=== PATIENT | female | born 1985 | race African-American/Black ===

== ENCOUNTER 2017-10-17 11:46 | Emergency (ER) | payer SELFPAY ==
[~2017-10-17] VITALS: Ht 172.7 cm; Wt 65.9 kg
[~2017-10-17 11:46] MED LIST: NO HOME MEDICATIONS
[2017-10-17 11:50] VITALS: TEMP 97.6
[2017-10-17 14:44] LABS: COLLECTION METHOD CLEAN CATCH
[2017-10-17 14:57] LABS: MUCOUS Present /lpf; PH 6 (5-8); SQUAMOUS EPITHELIAL 0-2 /hpf; URINE APPEARANCE Hazy; URINE BACTERIA None Seen /hpf; URINE BILIRUBIN Negative (NEGATIVE); URINE BLOOD 3+ (NEGATIVE); URINE COLOR Yellow; URINE GLUCOSE Negative (NEGATIVE); URINE KETONE Trace (NEGATIVE); URINE LEUKOCYTE ESTERASE Trace (NEGATIVE); URINE NITRATE Negative (NEGATIVE); URINE PROTEIN(semi-quant) Negative (NEGATIVE); URINE RBC 0-2 /hpf; URINE UROBILINOGEN Negative (NEGATIVE)
[2017-10-17 15:08] LABS: BASO % 0.6 % (0.0-2.0); EOS # 0.1 (0.0-0.7); EOS % 1.6 % (0-4.0); GRAN # 2.4 (1.4-6.5); GRAN % 47.5 % (42.2-75.2); HEMATOCRIT 43.6 % (37.0-47.0); HEMOGLOBIN 15.4 g/dl (12.5-16.0); LYMPH % 40.1 % (20.0-51.0); MEAN CELL VOLUME 99 fl (80.0-100.0); MEAN CORPUSCULAR HEMOGLOBIN 35 pg (27.0-31.0); MEAN CORPUSCULAR HGB CONC 35 g/dl (33.0-37.0); MEAN PLATELET VOLUME 11.4 fl (7.4-10.4); MONO # 0.5 (0.1-0.6); PLATELET COUNT 194 K/mm3 (130-400); RED BLOOD COUNT 4.41 M/mm3 (4.10-5.30); REDCELL DISTRIBUTION WIDTH-CV 11.8 % (11.5-14.5)
[2017-10-17 15:25] LABS: ALBUMIN 5.2 gm/dL (3.5-5.0); BILIRUBIN,TOTAL 0.8 mg/dL (0.0-1.0); C-REACTIVE PROTEIN 4.2 mg/dL (0.0-0.9); CALCIUM 10.1 mg/dL (8.4-10.2); CREATININE, serum 0.74 mg/dL (0.52-1.25); POTASSIUM 3.6 mmol/L (3.4-5.0)
[2017-10-17 15:52] LABS: TSH w REFLEX 2.05 uIU/mL (0.465-4.680)
[2017-10-17] MEDS ORDERED: CEFTIN 250250 MG/TAB PO (16:49)
[2017-10-17 17:01] VITALS: BP 119/77; PULSE 78
== END 2017-10-17 16:57 | disposition home or self-care (01) ==
LOC: COL.ER 11:46
PROVIDERS: Nurse Practitioner
DX: N39.0 Urinary tract infection, site not specified (principal); F17.210 Nicotine dependence, cigarettes, uncomplicated
CPT/HCPCS: J7030

== ENCOUNTER 2018-09-25 17:36 | Emergency (ER) | payer MEDICAID ==
[~2018-09-25] VITALS: Ht 172.7 cm; Wt 60.6 kg
[~2018-09-25 17:36] MED LIST changes: +CEFTIN 250250 MG/TAB PO
[2018-09-25 17:39] VITALS: TEMP 97.7
[2018-09-25 18:42] LABS: COLLECTION METHOD CLEAN CATCH
[2018-09-25 18:50] LABS: MUCOUS Present /lpf; PH 6 (5-8); URINE APPEARANCE Clear; URINE BACTERIA None Seen /hpf; URINE BILIRUBIN Negative (NEGATIVE); URINE BLOOD Negative (NEGATIVE); URINE COLOR Yellow; URINE GLUCOSE Negative (NEGATIVE); URINE KETONE Negative (NEGATIVE); URINE LEUKOCYTE ESTERASE 1+ (NEGATIVE); URINE NITRATE Negative (NEGATIVE); URINE PROTEIN(semi-quant) Negative (NEGATIVE); URINE UROBILINOGEN Negative (NEGATIVE)
[2018-09-25 19:02] LABS: BASO % 0.7 % (0.0-2.0); EOS # 0.1 (0.0-0.7); EOS % 2.2 % (0-4.0); GRAN # 1.9 (1.4-6.5); GRAN % 47.9 % (42.2-75.2); HEMATOCRIT 39.2 % (37.0-47.0); HEMOGLOBIN 13.7 g/dl (12.5-16.0); LYMPH # 1.5 (1.2-3.4); LYMPH % 37.8 % (20.0-51.0); MEAN CELL VOLUME 101 fl (80.0-100.0); MEAN CORPUSCULAR HEMOGLOBIN 35 pg (27.0-31.0); MEAN CORPUSCULAR HGB CONC 35 g/dl (33.0-37.0); MEAN PLATELET VOLUME 11.6 fl (7.4-10.4); MONO # 0.5 (0.1-0.6); MONO % 11.4 % (1.7-9.3); PLATELET COUNT 175 K/mm3 (130-400)
[2018-09-25 19:09] LABS: ALANINE AMINOTRANSFERASE 14 U/L (9-52); ALBUMIN 3.8 gm/dL (3.5-5.0); ALKALINE PHOSPHATASE 43 U/L (50-136); ANION GAP 4 mmol/L (7-16); AST,SGOT 16 U/L (15-37); BILIRUBIN,TOTAL 0.2 mg/dL (0.0-1.0); BLOOD UREA NITROGEN 6 mg/dL (7-17); CARBON DIOXIDE 31 mmol/L (22-30); CHLORIDE 105 mmol/L (98-107); CREATININE, serum 0.71 mg/dL (0.52-1.25); GLUCOSE 74 mg/dL (74-106); LIPASE 64 U/L (23-300); POTASSIUM 3.6 mmol/L (3.4-5.0); SODIUM 140 mmol/L (137-145); TOTAL PROTEIN 6.6 gm/dL (6.4-8.2)
[2018-09-25 19:13] LABS: C-REACTIVE PROTEIN < 0.5 mg/dL (0.0-0.9)
[2018-09-25] MEDS ORDERED: ZOFRAN ODT4 MG PO (19:26)
[2018-09-25] MEDS ORDERED: MACROBID 1100 MG/CAP PO (19:28)
[2018-09-25 19:45] VITALS: BP 147/94; PULSE 61
== END 2018-09-25 19:45 | disposition home or self-care (01) ==
LOC: COL.ER 17:36
PROVIDERS: Physician Assistant
DX: N39.0 Urinary tract infection, site not specified (principal)

== ENCOUNTER → 2018-09-26 | Outpatient (CLI) | payer MEDICAID ==
[~2018-09-26] MED LIST changes: +MACROBID 1100 MG/CAP PO; +ZOFRAN ODT4 MG PO
== END ==
LOC: COL.RAD 09:32
DX: R10.11 Right upper quadrant pain (principal)

== ENCOUNTER 2019-08-12 14:15 | Emergency (ER) | payer MEDICAID ==
[~2019-08-12] VITALS: Ht 172.7 cm; Wt 68.2 kg
[2019-08-12 14:17] VITALS: BP 143/71; PULSE 58; TEMP 98.2
== END 2019-08-12 14:45 | disposition home or self-care (01) ==
LOC: COL.ER 14:15
DX: T74.21XA Adult sexual abuse, confirmed, initial encounter (principal)

== ENCOUNTER → 2019-08-12 | Outpatient (CLI) | payer SELFPAY | LOC: LDRO 14:35 | DX: Z04.41 Encounter for examination and observation following alleged adult rape (principal) ==

== ENCOUNTER → 2019-08-12 | Outpatient (REF) | payer SELFPAY | LOC: COL.ER 14:21 | DX: T74.21XA Adult sexual abuse, confirmed, initial encounter (principal) ==

== ENCOUNTER → 2019-08-12 | Outpatient (REF) | LOC: COL.ER 14:46 | DX: T74.21XA Adult sexual abuse, confirmed, initial encounter (principal) ==

== ENCOUNTER 2020-06-13 18:33 | Emergency (ER) | payer SELFPAY ==
[~2020-06-13] VITALS: Ht 172.7 cm; Wt 72.7 kg
[2020-06-13 19:11] LABS: COLLECTION METHOD CLEAN CATCH
[2020-06-13 19:20] LABS: BASO % 0.4 % (0.0-2.0); EOS # 0.1 (0.0-0.7); EOS % 1.3 % (0-4.0); GRAN # 4.6 (1.4-6.5); GRAN % 66.5 % (42.2-75.2); HEMATOCRIT 41.8 % (37.0-47.0); HEMOGLOBIN 14.2 g/dl (12.5-16.0); LYMPH # 1.7 (1.2-3.4); MEAN CELL VOLUME 100 fl (80.0-100.0); MEAN CORPUSCULAR HEMOGLOBIN 34 pg (27.0-31.0); MEAN CORPUSCULAR HGB CONC 34 g/dl (33.0-37.0); MEAN PLATELET VOLUME 11.9 fl (7.4-10.4); MONO # 0.5 (0.1-0.6); MONO % 6.5 % (1.7-9.3); PLATELET COUNT 207 K/mm3 (130-400); RED BLOOD COUNT 4.18 M/mm3 (4.10-5.30)
[2020-06-13 19:27] LABS: ALANINE AMINOTRANSFERASE 15 U/L (4-34); ALBUMIN 4.3 gm/dL (3.5-5.0); ALKALINE PHOSPHATASE 45 U/L (50-136); ANION GAP 9 mmol/L (7-16); AST,SGOT 23 U/L (15-37); BILIRUBIN,TOTAL 0.5 mg/dL (0.0-1.0); BLOOD UREA NITROGEN 4 mg/dL (7-17); CARBON DIOXIDE 27 mmol/L (22-30); CHLORIDE 102 mmol/L (98-107); CREATININE, serum 0.72 (0.52-1.25); GLUCOSE 129 mg/dL (74-106); LIPASE 123 U/L (23-300); POTASSIUM 3.2 mmol/L (3.4-5.0); SODIUM 138 mmol/L (137-145); TOTAL PROTEIN 7.2 gm/dL (6.4-8.2)
[2020-06-13 19:33] LABS: C-REACTIVE PROTEIN < 0.5 mg/dL (0.0-0.9)
[2020-06-13 19:44] LABS: MUCOUS Present /lpf; PH 5 (5-8); SQUAMOUS EPITHELIAL 0-2 /hpf; URINE APPEARANCE Hazy; URINE BACTERIA None Seen /hpf; URINE BILIRUBIN Negative (NEGATIVE); URINE BLOOD Negative (NEGATIVE); URINE COLOR Yellow; URINE GLUCOSE Negative (NEGATIVE); URINE KETONE Negative (NEGATIVE); URINE LEUKOCYTE ESTERASE Trace (NEGATIVE); URINE NITRATE Negative (NEGATIVE); URINE PROTEIN(semi-quant) Negative (NEGATIVE); URINE UROBILINOGEN >=4.0 mg/dL (NEGATIVE)
[2020-06-13 23:05] VITALS: BP 125/77; PULSE 68; TEMP 98.7
== END 2020-06-13 23:05 | disposition short-term general hospital (02) ==
LOC: COL.ER 18:33
PROVIDERS: Nurse Practitioner Primary Care
DX: N39.0 Urinary tract infection, site not specified (principal); R18.8 Other ascites; N83.8 Other noninflammatory disorders of ovary, fallopian tube and broad ligament
CPT/HCPCS: J2060; Q9967

== ENCOUNTER 2024-04-16 02:35 | Emergency (ER) | payer SELFPAY ==
[~2024-04-16] VITALS: Ht 172.7 cm; Wt 72.7 kg
[2024-04-16 02:37] VITALS: TEMP 98.3
[2024-04-16 07:44] VITALS: BP 121/62; PULSE 61
== END 2024-04-16 07:56 | disposition home or self-care (01) ==
LOC: COL.ER 02:35
DX: R44.0 Auditory hallucinations (principal); R44.1 Visual hallucinations; F17.290 Nicotine dependence, other tobacco product, uncomplicated